=== PATIENT | female | born 1970 ===

== ENCOUNTER 2024-11-10 06:11 | Day surgery (SDC) | payer OTHER ==
[2024-11-04 08:59] VITALS: BP 129/87
[2024-11-04 09:11] LABS: PH,URINE 6.5 (5.0-8.0); URINE APPEARANCE Clear; URINE BILIRRUBIN Negative (NEGATIVE); URINE BLOOD Negative; URINE COLOR Yellow; URINE GLUCOSE Negative (NEGATIVE); URINE KETONE Negative (NEGATIVE); URINE LEUKOCYTE Negative; URINE NITRATE Negative; URINE PROTEIN Negative (NEGATIVE); URINE UROBILINOGEN 0.2 E.U./dl
[2024-11-04 09:14] LABS: BASO % 0.5 % (0.1-1.2); EOS % 2.4 % (0.7-7.0); HEMATOCRIT 39.8 % (34.1-44.9); HEMOGLOBIN 13.5 g/dL (11.2-15.7); LYMPH % 31.7 % (19.3-53.1); MEAN CORPUSCULAR HEMOGLOBIN 30.2 pg (25.6-32.2); MONO % 7.3 % (4.7-12.5); NEUT # 4.73 (1.56-6.13); NEUT % 57.7 % (34.0-71.1); PLATELET COUNT 233 K/uL (163-369); RED BLOOD COUNT 4.47 M/uL (3.93-5.22); RED CELL DISTRIBUTION WIDTH 12.2 % (11.6-14.4)
[2024-11-04 09:15] LABS: URINE BACTERIA 4.8 uL (0.0-1933); URINE EPITHELIAL CELLS 2.5 uL (0.0-38.8); URINE RBC 9.8 uL (0.0-20.8)
[2024-11-04 09:44] LABS: BILIRUBIN TOTAL 0.36 mg/dL (0.3-1.2); CALCIUM 9.5 mg/dL (8.5-10.1); CREATININE SERUM 0.92 mg/dL (0.55-1.02); GFR 63.38; POTASSIUM 4.32 mEq/L (3.5-5.1)
[2024-11-04 09:48] LABS: URINE WBC 0.4 uL (0.0-23.2)
[2024-11-04 09:51] LABS: COVID-19 AG NEGATIVE (NEGATIVE)
[2024-11-04 10:04] LABS: INR 0.97; PARTIAL THROMBOPLASTIN TIME 29.6 SECONDS (22.0-34.0); PROTHROMBIN TIME 10.6 SECONDS (9.0-11.5)
[~2024-11-10] VITALS: Ht 165.1 cm; Wt 105.2 kg
[~2024-11-10 06:11] MED LIST: COZAAR50 MG PO; GAS RELIEF125 M1 PO; MINIVELLE1 EACH TD; MOUNJARO7.5 MG/0.5 SQ; MULTIPLE VITAM1 EAC2 PO; PRILOSEC OTC20 MG PO; PROMETRIUM200 MG PO; SIMVASTATIN5 MG; SYNTHROID100 MCG PO
[2024-11-10] MEDS ORDERED: CEFAZOLIN SODIUM 1,000 MG VIAL ONE ×2 (06:58→06:59)
[2024-11-10] MEDS ORDERED: EPINEPHRINE HCL/PF 1 MG/ML AMPUL ONE (07:29)
[2024-11-10] MEDS ORDERED: POVIDONE-IODINE SCRUB 118 ML BOTT TOP ONE (07:29)
[2024-11-10] MEDS ORDERED: LIDOCAINE HCL 1%/EPINEPHRINE 20ML VIAL IJ ONE (07:30)
[2024-11-10] MEDS ORDERED: NEOMYCIN/POLYMYXIN B/HYDROCORT 20 DR/ML BOTTLE OT ONE (07:30)
[2024-11-10] MEDS ORDERED: POVIDONE-IODINE 118 ML BOTT TOP ONE (07:30)
[2024-11-10] MEDS ORDERED: MEPERIDINE HCL/PF 50 MG/ML VIAL IM PRN (10:30)
[2024-11-10] MEDS ORDERED: PROMETHAZINE HCL 25 MG/ML AMPUL IM PRN (10:30)
[2024-11-10] MEDS ORDERED: CIPROFLOXACIN HCL 0.175 MG/DR DROPS OTIC ONE (10:45)
== END 2024-11-10 11:55 | disposition home or self-care (01) ==
LOC: CIR.AMB 06:11
PROVIDERS: ATTEND Otolaryngology Otology & Neurotology
DX: H80.91 Unspecified otosclerosis, right ear (principal); H80.01 Otosclerosis involving oval window, nonobliterative, right ear; H90.11 Conductive hearing loss, unilateral, right ear, with unrestricted hearing on the contralateral side